=== PATIENT | male | born 1940 | race Caucasian/White ===

== ENCOUNTER 2017-12-14 12:52 | Day surgery (SDC) | payer MEDICARE, BC ==
[~2017-12-14] VITALS: Ht 188 cm; Wt 186.4 kg
[~2017-12-14 12:52] MED LIST: ALLOPURINOL300 MG PO; ARTHROTEC 550 MG/TAB PO; CALTRATE-600 W600 MG PO; FISH OIL CONC1000 MG PO; GLUCOSAMINE PO; HCTZ 25MG TAB25 MG PO; LISINOPRIL20 MG PO; LYRICA150 MG PO; METAMUCIL1 PDR PO; MVI; OXYCODONE HCL10 MG PO; ULTRAM50 MG PO; XENICAL120 MG PO; ZOCOR 20MG20 MG PO
[2017-12-14] MEDS ORDERED: MULTIPLE VITAMI1 CAP PO (13:35)
[2017-12-14] MEDS ORDERED: PRAVACHOL 40MG40 MG PO (13:35)
[2017-12-14] MEDS ORDERED: COZAAR 50MG50 MG/TAB PO (13:36)
[2017-12-14] MEDS ORDERED: LEXAPRO 10MG10 MG PO (13:36)
[2017-12-14] MEDS ORDERED: B-121000 MCG PO (13:37)
[2017-12-14] MEDS ORDERED: FLOMAX 0.40.4 MG/CAP PO (13:38)
[2017-12-14] MEDS ORDERED: PROSCAR 5MG5 MG PO (13:38)
[2017-12-14] MEDS ORDERED: CIPRO 500MG TA500 MG PO (13:39)
[2017-12-14] MEDS ORDERED: GLUCOSAMINE 1000 PO (13:40)
[2017-12-14] MEDS ORDERED: VITAMIN C500 MG PO (13:41)
[2017-12-14] MEDS ORDERED: GLUCOPHAGE1000 MG PO (13:41)
[2017-12-14] MEDS ORDERED: OXYCONTIN 20MG20 MG PO (13:42)
[2017-12-14] MEDS ORDERED: ARTHROTEC 550 MG/TAB PO (13:42)
[2017-12-14] MEDS ORDERED: OXYCONTIN 10MG10 MG PO (13:43)
[2017-12-14] MEDS ORDERED: LYRICA 150MG C150 MG PO (13:44)
== END 2017-12-14 14:05 | disposition home or self-care (01) ==
LOC: SDCO 12:52
DX: N47.1 Phimosis (principal); N39.0 Urinary tract infection, site not specified; E66.01 Morbid (severe) obesity due to excess calories; M19.90 Unspecified osteoarthritis, unspecified site; E11.9 Type 2 diabetes mellitus without complications; I10 Essential (primary) hypertension; G47.33 Obstructive sleep apnea (adult) (pediatric); Z88.0 Allergy status to penicillin; Z88.8 Allergy status to other drugs, medicaments and biological substances; Z88.5 Allergy status to narcotic agent; Z82.49 Family history of ischemic heart disease and other diseases of the circulatory system

== ENCOUNTER 2022-03-02 20:32 | Inpatient (IN) | payer MEDICARE, BC ==
[~2022-03-02] VITALS: Ht 175.3 cm; Wt 180.5 kg
[~2022-03-02 20:32] MED LIST changes: +B-121000 MCG PO; +CIPRO 500MG TA500 MG PO; +COZAAR 50MG50 MG/TAB PO; +FLOMAX 0.40.4 MG/CAP PO; +GLUCOPHAGE1000 MG PO; +GLUCOSAMINE 1000 PO; +LEXAPRO 10MG10 MG PO; +LYRICA 150MG C150 MG PO; +MULTIPLE VITAMI1 CAP PO; +OXYCONTIN 10MG10 MG PO; +OXYCONTIN 20MG20 MG PO; +PRAVACHOL 40MG40 MG PO; +PROSCAR 5MG5 MG PO; +VITAMIN C500 MG PO
[2022-03-02 22:14] LABS: BASO # 0.1 K/mm3 (0.0-0.2); BASO % 0.5 % (0.0-2.0); EOS # 0.1 K/mm3 (0.0-0.7); EOS % 0.5 % (0.0-4.0); GRAN # 19.2 K/mm3 (1.4-6.5); HEMATOCRIT 43.8 % (42.0-52.0); HEMOGLOBIN 13.8 g/dl (13.5-18.0); LYMPH # 0.8 K/mm3 (1.2-3.4); LYMPH % 3.7 % (20.0-51.0); MEAN CELL VOLUME 88 fl (80.0-100.0); MEAN CORPUSCULAR HEMOGLOBIN 28 pg (27-31); MEAN CORPUSCULAR HGB CONC 32 g/dl (33.0-37.0); MONO # 1.2 K/mm3 (0.1-0.6); MONO % 5.7 % (1.7-9.3); PLATELET COUNT 235 K/mm3 (130-400); RED BLOOD COUNT 4.98 M/mm3 (4.20-5.60); REDCELL DISTRIBUTION WIDTH-CV 15.4 % (11.5-14.5)
[2022-03-02 22:19] LABS: INR 1.3 (0.8-3.0); PROTHROMBIN TIME 14.5 SECONDS (9.7-12.8)
[2022-03-02 22:27] LABS: ARTERIAL BLD GAS TCO2 CT 26.4; ARTERIAL BLOOD GAS HCO3 25.2 meq/L (22-26); ARTERIAL BLOOD GAS PCO2 38.7 mmHg (35-45); ARTERIAL BLOOD GAS PO2 79.3 mmHg (80-100); ARTERIAL BLOOD GAS pH 7.43 (7.35-7.45)
[2022-03-02 22:31] LABS: BILIRUBIN,TOTAL 0.9 mg/dL (0.2-1.2); CALCIUM 9.1 mg/dL (8.4-10.2); CREATININE, serum 1.59 mg/dL (0.72-1.25); POTASSIUM 3.9 mmol/L (3.5-4.5); TOTAL PROTEIN 7.5 gm/dL (6.2-8.1)
[2022-03-02 22:37] LABS: TROPONIN-I 0.021 ng/mL (0.00-0.033)
[2022-03-03 00:14] LABS: COLLECTION METHOD CATHETER
[2022-03-03 00:29] LABS: PH 8 (5-8); URINE APPEARANCE Turbid (CLEAR/HAZY); URINE BACTERIA Rare /hpf (NONE SEEN); URINE BILIRUBIN Negative (NEGATIVE); URINE BLOOD 2+ (NEGATIVE); URINE COLOR Yellow (YELLOW); URINE GLUCOSE 3+ (NEGATIVE); URINE KETONE Negative (NEGATIVE); URINE LEUKOCYTE ESTERASE 3+ (NEGATIVE); URINE NITRATE Positive (NEGATIVE); URINE PROTEIN(semi-quant) 1+ (NEGATIVE); URINE RBC 20-50 /hpf (0-2); URINE UROBILINOGEN Negative (NEGATIVE)
[2022-03-03] MEDS ORDERED: GLUCOPHAGE XR500 M1 PO (02:06)
[2022-03-03] MEDS ORDERED: ZYLOPRIM 300MG300 MG PO (02:07)
[2022-03-03] MEDS ORDERED: JARDIANCE25 PO (02:10)
[2022-03-03] MEDS ORDERED: MULTI VITAMINS1 TAB PO (02:11)
[2022-03-03] MEDS ORDERED: GEMTESA75 MG PO (02:11)
[2022-03-03] MEDS ORDERED: MONODOX100 PO (02:11)
[2022-03-03] MEDS ORDERED: VITAMIN D 400400 IU PO (02:11)
[2022-03-03] MEDS ORDERED: LASIX 20MG TABL20 MG PO (02:12)
[2022-03-03] MEDS ORDERED: NUVIGIL150 MG PO (02:36)
--- NOTE | 2022-03-03 05:26 | NUR ---
81 yo male admitted for further care and management of acute respiratory failure with severe sepsis likely secondary to lung vs. urine vs. skin/soft tissue source. ht 187.96 cm wt 181.8 kg (adj wt 122 kg) SCr 1.59 with estimated CrCl ~45 ml/min half life 28.5 hours Plan: Patient may not follow population based kinetics secondary to renal dysfunction and body habitus (BMI 51.4 kg/m2). Will load with an initial split loading dose of vancomycin 2000 mg followed by vancomycin 1250 mg for a total loading dose of 3250 mg (17.9 mg/kg); followed by a maintenance regimen of vancomycin 1500 mg q24h to target a goal trough of 15-20 mcg/ml. Will follow patient's renal function, micro data, and vancomycin levels as indicated to assess for any necessary changes to regimen. Thank you for this dosing consult.
[2022-03-03 14:14] LABS: HEMATOCRIT 38.7 % (42.0-52.0); HEMOGLOBIN 12.6 g/dl (13.5-18.0); MEAN CELL VOLUME 86 fl (80.0-100.0); MEAN CORPUSCULAR HEMOGLOBIN 28 pg (27-31); MEAN CORPUSCULAR HGB CONC 33 g/dl (33.0-37.0); PLATELET COUNT 206 K/mm3 (130-400); RED BLOOD COUNT 4.52 M/mm3 (4.20-5.60); REDCELL DISTRIBUTION WIDTH-CV 15.4 % (11.5-14.5)
[2022-03-03 14:28] LABS: CALCIUM 8.2 mg/dL (8.4-10.2); CREATININE, serum 1.51 mg/dL (0.72-1.25); MAGNESIUM 1.4 mg/dL (1.6-2.6); POTASSIUM 3.5 mmol/L (3.5-4.5)
--- NOTE | 2022-03-03 14:28 | NUR ---
Leguillon Debeader met with patient and patient's , Laury (ph#[phone]) to discuss discharge planning. Patient lives outside of [place] and sees Dr. Jaramillo for primary care. Patient obtains medications from [facility] and Laury remarked that both her medications and patients can get expensive, but they are able to manage at this time. 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 Patient is unable to walk and uses a motorized wheelchair for ambulation. Laury advised that they have several grab bars all around the home and patient is normally able to transfer himself from his chair to the toilet and back, mostly independently. Laury advised she helps patient with bathing and dressing. JACQUELYN discussed the possibility of post acute rehab and Laury advised patient will likely not agree to this as home is very important to him (patient sleeping at this point of the intake). Laury denied any current or past Home Health services. PT/OT ordered. JACQUELYN located Advance Directives in EMR which designate patient's Laury as DPOA-HC and his son and daughter in law, Jose Enrique and Chantell as alternates. Discharge Plan: Patient prefers home, PT/OT recs pending
[2022-03-03 14:36] LABS: ANISOCYTOSIS 1+; BAND 19 % (0-10); EOSINOPHIL 2 % (0-4); LYMPHOCYTE 16 % (20.0-51.0); METAMYELOCYTE 1 % (0-0); NEUTROPHILS 52 % (42.0-75.2); PLATELET ESTIMATE NORMAL (NORMAL)
[2022-03-03 16:27] VITALS: BP 154/88; PULSE 72; TEMP 98.1
[2022-03-03 19:38] VITALS: BP 149/78; PULSE 70; TEMP 97.4
[2022-03-03 19:52] VITALS: BP 149/78; PULSE 70; TEMP 97.4
--- NOTE | 2022-03-03 20:11 | NUR ---
PATIENT ARRIVED FROM ER WITH NO COMPLAINTS OF PAIN, STATES NO BM IN 5X DAYS., HEPARIN DRIP CONFIRMED TO BE RUNNING AT 2300UI/HR. PATIENT SETTLED IN BED ORIENTED TO ROOM, CHANGED CHUX PAD AND PROVIDED WATER AND MEAL ORDER OPTIONS. PATIENT ASSESSMENT COMPLETED. MED REC COMPLETED WITH AT END OF SHIFT. NO SIGNIFICANT EVENTS DURING SHIFT. HEPARIN DRIP ADJUSTED TO 2550UI/HR PER PROTOCOL, CONFIRMED WITH BEDSIDE SHIFT REPORT.
[2022-03-04] VITALS (7 sets, daily range): BP systolic 147–171; BP diastolic 73–89; PULSE 66–82; TEMP 97.6–100.2
--- NOTE | 2022-03-04 00:14 | NUR ---
Patient assessed around 0. Alert and oriented. Denies pain and discomfort, except being constipated. Given scheduled stool softeners per orders. Continues on IV fluids, ABX, and Heparin drip per orders. In bed with call light within reach.
--- NOTE | 2022-03-04 06:06 | NUR ---
Continues on IV ABX, fluids, and Heparin drip per orders. Incontinent cares provided throughout the night. Voices no questions, needs, or concerns at this time. In bed with call light within reach.
[2022-03-04 06:24] LABS: HEMATOCRIT 39.7 % (42.0-52.0); HEMOGLOBIN 13.1 g/dl (13.5-18.0); MEAN CELL VOLUME 84 fl (80.0-100.0); MEAN CORPUSCULAR HEMOGLOBIN 28 pg (27-31); MEAN CORPUSCULAR HGB CONC 33 g/dl (33.0-37.0); MEAN PLATELET VOLUME 10.1 fl (7.4-10.4); PLATELET COUNT 207 K/mm3 (130-400); RED BLOOD COUNT 4.71 M/mm3 (4.20-5.60); REDCELL DISTRIBUTION WIDTH-CV 15.3 % (11.5-14.5)
[2022-03-04 06:47] LABS: ALBUMIN 2.6 gm/dL (3.4-4.8); BILIRUBIN,TOTAL 0.8 mg/dL (0.2-1.2); CALCIUM 8.3 mg/dL (8.4-10.2); CREATININE, serum 1.48 mg/dL (0.72-1.25); POTASSIUM 3.7 mmol/L (3.5-4.5); TOTAL PROTEIN 7.1 gm/dL (6.2-8.1)
[2022-03-04 07:20] LABS: BAND 8 % (0-10); BASOPHIL 1 % (0-2); EOSINOPHIL 1 % (0-4); LYMPHOCYTE 13 % (20.0-51.0); NEUTROPHILS 70 % (42.0-75.2)
[2022-03-04 07:21] LABS: PLATELET ESTIMATE NORMAL (NORMAL)
[2022-03-04 08:30] LABS: CALCIUM 8.4 mg/dL (8.4-10.2); CREATININE, serum 1.49 mg/dL (0.72-1.25); POTASSIUM 3.8 mmol/L (3.5-4.5)
--- NOTE | 2022-03-04 10:20 | NUR ---
PATIENT ON CONT. PULSE OX MONITORING. 3L OXY MASK. CONSTANT URINATION, DETERIATION OF SKIN ON THE SCROTUM. SOME BLEEDING FROM OPEN SKIN. WOUND ON SCROTUM HAS NOT GROWN. UNABLE TO PLACE WATERMAN PER ORDER, WILL REQUET UROLOGY CONSULT. PATIENT MENTIONED TO THIS NURSE ABOUT NOT WANTING TO GO HOME IN HIS CONDITION, OR BE AN IVALID UNTIL HE . "WANTING TO BE DONE WITH IT ALL". WILL DISCUSS WITH PROVIER.
--- NOTE | 2022-03-04 12:24 | NUR ---
Zuleika: Tenriism Situation: Tool Programmer went to room on rounds Background: PT was resting and content Assessment: PT didn't have any needs and appreciated the visit Recommendation: Tool Programmer will follow up as needed
--- NOTE | 2022-03-04 13:42 | NUR ---
Met with patient and his at bedside. Dr. Quinones also stepped in during out conversation. Discussed difference between SNF and home health and that we could talk about hospice if that is the direction patient wants to go. Discussed that the big question is how aggressive he wants to be with his care and how much work he is willing/able to put in to rehab. Was also upfront with the patient that we have limited rehab options d/t his size and current mobility level. Patient ended our conversation but will check back later.
--- NOTE | 2022-03-04 15:43 | NUR ---
PATIENT ON BED REST, INSTRUCTED TO NOT SIT EDGE OF BED WITH , FOR IF HE WERE TO FALL, HE COULD HURT HIMSELF, AND/OR STAFF TRYING TO GET HIM BACK UP INTO BED. PATIENT IS CONSTANTLY EXCRETING URINE, BED CHANGES EVERY 30-60MINS. FAILED WATERMAN ATTEMPTS BY THIS NURSE, GREEN CHAINER AND UROLOGY PA. UROLOGY TO DISCUSSE CYSTO PLACEMENT. HEPARIN DRIP AT 3050UI/HR. AWAITING HEPXA RESULTS FOR TITRATION. PALIATIVE CONSULT INITIATED. PATIENT CONSIDERING HOSPICE.
--- NOTE | 2022-03-04 15:58 | NUR ---
A palliative care consult was ordered. The patient and his and discussing goals of care and how aggressive they want to be.
--- NOTE | 2022-03-04 20:30 | NUR ---
Initial shift assessment done- at bedside with patient,, pt is alert/oriented, had a couple family members at bedside wanting to know his condition- given information per pts requests- IV fluids of NS at 150cc/hr per PICC YO, o2 at 3L/oxymask,sats 91%,, incontinent of urine- cleaned up/pulled up in bed--- has the crystal size open area on left side of scrotum- lower legs discolored/red, skin dry/scaly
[2022-03-05 03:33] VITALS: BP 155/77; PULSE 68; TEMP 98.1
--- NOTE | 2022-03-05 05:49 | NUR ---
O2 SATS 95% on 3L/oxymask,, did sleep for a few hours, incontinent of urine and cleaned up throughout the night every couple hours,, did have a temp of 100.2 last night,, some Tylenol given - afebrile this morning.
[2022-03-05 07:44] VITALS: BP 157/69; PULSE 67; TEMP 98.1
--- NOTE | 2022-03-05 09:00 | NUR ---
Patient is resting in bed with at the bedside. Receiving NS 150ml/hr. Changed per orders to 75ml/hr. Telemetry in place, NSR. Receiving 3L O2. Assessment completed, no other needs at this time. Call light within reach.
[2022-03-05 11:30] VITALS: BP 141/88; PULSE 78; TEMP 98.3
[2022-03-05 11:32] LABS: HEMATOCRIT 37.9 % (42.0-52.0); HEMOGLOBIN 11.8 g/dl (13.5-18.0); MEAN CORPUSCULAR HEMOGLOBIN 28 pg (27-31); MEAN CORPUSCULAR HGB CONC 31 g/dl (33.0-37.0); PLATELET COUNT 195 K/mm3 (130-400); RED BLOOD COUNT 4.26 M/mm3 (4.20-5.60); REDCELL DISTRIBUTION WIDTH-CV 15.6 % (11.5-14.5)
[2022-03-05 11:41] LABS: MEAN CELL VOLUME 89 fl (80.0-100.0)
[2022-03-05 11:53] LABS: ALBUMIN 2.2 gm/dL (3.4-4.8); BILIRUBIN,TOTAL 0.6 mg/dL (0.2-1.2); CALCIUM 7.3 mg/dL (8.4-10.2); CREATININE, serum 1.02 mg/dL (0.72-1.25); POTASSIUM 3.2 mmol/L (3.5-4.5); TOTAL PROTEIN 6.1 gm/dL (6.2-8.1)
[2022-03-05 12:12] LABS: BAND 1 % (0-10); EOSINOPHIL 1 % (0-4); LYMPHOCYTE 13 % (20.0-51.0); NEUTROPHILS 76 % (42.0-75.2)
[2022-03-05 12:13] LABS: ANISOCYTOSIS 1+; HYPOCHROMIA 2+; PLATELET ESTIMATE NORMAL (NORMAL)
[2022-03-05 15:38] VITALS: BP 159/69; PULSE 63; TEMP 98.6
--- NOTE | 2022-03-05 18:08 | NUR ---
Patient had a couple of small dry bowel movements. Continues getting fluids at 75 ml/hr. No insulin was needed along the day. He is using 4.5L O2 Oxymasc. Report will be given to night RN.
[2022-03-05 19:14] VITALS: BP 149/73; PULSE 64; TEMP 99.2
--- NOTE | 2022-03-05 20:30 | NUR ---
Initial shift assessment done- in room with him for the night-- patient is alert/oriented/ incontinent of urine/cleaned up/repositioned-in bariatric bed.has o2 at 4L/oxymask,sats 93%. pt states he just feels weak,very low energy. Iv fluids of NS at 75cc/hr.
[2022-03-06] VITALS (7 sets, daily range): BP systolic 150–163; BP diastolic 68–88; PULSE 64–76; TEMP 97.4–99.3
--- NOTE | 2022-03-06 06:34 | NUR ---
Quiet night - Was incontinent of urine numerous times- cleaned up and repositioned, o2 at 4L/nc, sats 93-94%,, highest temp during the night 99.3,, continues with IV fluids of NS at 75cc/hr
[2022-03-06 07:02] LABS: BASO # 0.1 K/mm3 (0.0-0.2); BASO % 0.5 % (0.0-2.0); EOS # 0.3 K/mm3 (0.0-0.7); EOS % 2.4 % (0.0-4.0); GRAN # 8.1 K/mm3 (1.4-6.5); HEMOGLOBIN 12.6 g/dl (13.5-18.0); LYMPH # 2.2 K/mm3 (1.2-3.4); LYMPH % 18.3 % (20.0-51.0); MEAN CELL VOLUME 87 fl (80.0-100.0); MEAN CORPUSCULAR HEMOGLOBIN 28 pg (27-31); MEAN CORPUSCULAR HGB CONC 32 g/dl (33.0-37.0); MEAN PLATELET VOLUME 10.6 fl (7.4-10.4); MONO # 1.1 K/mm3 (0.1-0.6); PLATELET COUNT 219 K/mm3 (130-400); RED BLOOD COUNT 4.59 M/mm3 (4.20-5.60); REDCELL DISTRIBUTION WIDTH-CV 15.5 % (11.5-14.5)
[2022-03-06 07:24] LABS: ALBUMIN 2.5 gm/dL (3.4-4.8); BILIRUBIN,TOTAL 0.7 mg/dL (0.2-1.2); CALCIUM 8.2 mg/dL (8.4-10.2); CREATININE, serum 1.25 mg/dL (0.72-1.25); POTASSIUM 3.6 mmol/L (3.5-4.5); TOTAL PROTEIN 6.8 gm/dL (6.2-8.1)
--- NOTE | 2022-03-06 08:30 | NUR ---
Patient is resting in bed, alert and oriented x 4, VSS but HTN 150-160'S. Complained of SOB at night. Telemetry in place, NSR. 4L o2 Oxymasc. He has been having very small ammounts of BM. Continue receiving NS 75 ML/HR. Assessment completed, meds provided. No other needs at this time. Call light within reach.
--- NOTE | 2022-03-06 18:17 | NUR ---
Patient has had some small and loose BM. His glucose levels do not require insulin according to the scale. Continues with 4.5 L oxymasc. Report will be given to night RN.
--- NOTE | 2022-03-06 20:30 | NUR ---
Initial shift assessment done- o2 at 4L/oxymask, sats 98% , patient had requested the continuos sat monitor- now wants it off-- so removed at this time, PICC to YO, denies pain, stare ate a good supper tonight- in room- stays all night.
[2022-03-07] VITALS (7 sets, daily range): BP systolic 155–186; BP diastolic 56–93; PULSE 65–77; TEMP 97.7–99.8
--- NOTE | 2022-03-07 04:54 | NUR ---
Quiet night- no changes- did get a few hours of sleep- VSS, o2 at 4Loxymask, sats 94%- continues to be incontinent of urine all night--was incontinent of a small soft stool x1.
--- NOTE | 2022-03-07 12:15 | NUR ---
PATIENT RESTING IN BED. ALERT AND ORIENTED. PATIENT MORE COMPLIANT WITH CARE, MORE INVOLVED WITH ASSISTING IN CARE TODAY. PATIENT PULLED HIMSELF UP IN THE BED TODAY. PATIENT HAS HAD TWO MEDIUM TO LARGE BOWEL MOVEMENTS DURING THE COURSE OF MORNING ASSESSMENT AND MED ADMINISTRATION. BROWN, SEMI-SOFT AND FORMED. NO COMPLAINTS OF PAIN WITH BOWEL MOVEMENT. PATIENT STATES HE HAD A VERY LARGE ROUND HARD BM OVER NIGHT THAT HIS HELPED CLEAN UP, HE DID NOT REPORT TO COSMETIC DENTIST STAFF. PATIENT TOOK ALL MEDS THIS MORNING ONE AT A TIME WITH ORANGE JUICE. REQUESTING DIET TO BE CHANGED TO MINCED AND MOIST MEAT, STATES HE CANNOT CHEW THE HOSPITAL MEAT. PATIENT WEIGHT TODAY IS 176.4KG. NO SIGNIFICANT COMPLAINTS OF PAIN. STILL ON 4L OF O2 VIA OXYMASK. WANTS TO SPEAK WITH SW ABOUT DPOA PAPERWORK. NO CONCERNS AT THIS TIME.
--- NOTE | 2022-03-07 18:26 | NUR ---
PATIENT RESTING IN BED. COMPLAINTS OF BACK PAIN. PATIENT INQUIRED ABOUT HIS HOME MED OXYCODONE. INSTRUCTED THAT NARCOTIC PAIN MEDS LIKELY CAUSE OF CONSTIPATION. PATIENT DID HAVE 3 MEDIUM-LARGE BOWEL MOVEMENTS TODAY. RECOMMEND INQUIRING ABOUT CONTINUING RELISTOR INJECTIONS. PATIENT WANTED TO TRY EXTERNAL CATH, THIS NURSE ATTEPTED. UNFORTUNATELY DUE TO NATURE OF PATIENTS FORESKIN AND MOISTURE, NOT ABLE TO APPLY CATH. AT END OF SHIFT PATIENT DID GET FULL BED CHANGE, NEW CHUX PADS AND SHEET. USING ONE CHUX FOLDED TO SUPPORT HERNIA AND PROTECT ABD SKIN FROM EXTRA MOISTURE. FLOOR CURRENTLY OUT OF INTERDRY SHEETS. PATIENT HYPERTENSIVE MEDS RESTARTED THIS EVENING. ZESTRIL NOT VERIFIED BY PHARMACY BY SHIFT CHANGE. WILL PASS ALONG IN SHIFT REPORT. BLOOD PRESSURE HAS BEEN ELEVATED THIS EVENING, REPORTED 182/89 AND 172/[address] BEVERLY (HE RESTARTED BP MEDS AND LASIX). NO OTHER SIGNIFICANT EVENTS TODAY OR CAUSE FOR CONCERN. PATIENT SEEMS TO BE VERY INTERESTED IN GETTING HEALTHY AND GETTING MORE ACTIVE AND ACHIEVING NEEDS TO GO HOME.
[2022-03-08] MEDS ORDERED: NORVASC 10MG10 MG PO (00:51)
[2022-03-08 03:35] VITALS: BP 178/84; PULSE 89; TEMP 97.8
--- NOTE | 2022-03-08 07:02 | NUR ---
pt on O2 per mask @4.5L, prn hydralazine started tonight for elevated SBP, x2 doses given, last @0030, BP this am down to 162/74. pt checked and turned q2, several soft formed bms tonight, recommended to hold off on some of the scheduled bowel movers today. pt c/o discomfort in groin/pannus/scrotum areas d/t excoriation, attempted to place inner dry but with incontinence of urine, cloth was saturated, covered entire area with barrier cream and wound gel. PICC line in YO patent/secure, no labs ordered for this am, will check with provider for order. tylenol given x2 for reported back pain. @ bedside.
[2022-03-08 07:07] VITALS: BP 166/86; PULSE 88; TEMP 97.4
[2022-03-08 08:16] LABS: ALBUMIN 2.7 gm/dL (3.4-4.8); BILIRUBIN,TOTAL 0.7 mg/dL (0.2-1.2); CALCIUM 9.1 mg/dL (8.4-10.2); CREATININE, serum 0.89 mg/dL (0.72-1.25); POTASSIUM 3.5 mmol/L (3.5-4.5); TOTAL PROTEIN 7.2 gm/dL (6.2-8.1)
--- NOTE | 2022-03-08 08:40 | NUR ---
PATIENT TURNED IN BED RESTING ON SIDE RAIL, C/O INCREASING BACK PAIN. LOWER RIGH BACK PAIN. PATIENT STATES ITS BASELINE LOCATION FOR PAIN. ON TYLENOL PER NOV, PRN. MEDS TAKEN WHOLE WITH SIOPS OF FLUIDS ONE AT A TIME, ASSISTS WITH MEDS. PATIENT ON 3L NC, SOME SHORTNESS OF BREATH, NO CYANOSIS, OR AMS. PICC DIFFICULT TO FLUSH OR DRAW. WILL CONSULT AIVS TO ADDRESS. WILL CONTINUE TO MONITOR.
--- NOTE | 2022-03-08 11:27 | NUR ---
The patient's cousin arrived to the hospital. JACQUELYN met with the patient, his (Laury), and cousin (Haley) to review discharge plan. The patient and his family report that plan is to return home upon discharge. Haley states that she is talking to a DME company, [employer], in [place], [place] about a bariatric hospital bed. She states that they can deliver the hospital bed in 24-48 hours, but she would like to call them back to inquire if this is a done deal and if they can also supply a trapeze. JACQUELYN informed her that this SW can also contact the DME company to assist. Haley asked for JACQUELYN to hold off and that she would contact this SW back, once she contacted them. JACQUELYN inquired if the patient would like to pursue with SNF. The patient and his declined SNF. Haley asked if any close facilities would accept him. JACQUELYN informed her how we would have to send referrals to inquire if a facility could accomodate the patient. The patient and his family verbalized understanding. The patient and his would like to pursue with going home. JACQUELYN provided them with Medicare.gov's list of home health agencies that serve [place]. Haley would like to look over the list and contact and few agencies, before giving SW their preference. The patient also verified that he has an oxygen concentrator at home, but not portable and he would need this. He received his oxygen concentrator from [employer]. Will await home health preference and follow up about hospital bed from [employer].
[2022-03-08 11:29] LABS: HEMATOCRIT 45.4 % (42.0-52.0); MEAN CELL VOLUME 86 fl (80.0-100.0); MEAN CORPUSCULAR HGB CONC 32 g/dl (33.0-37.0); PLATELET COUNT 265 K/mm3 (130-400); RED BLOOD COUNT 5.31 M/mm3 (4.20-5.60); REDCELL DISTRIBUTION WIDTH-CV 15.2 % (11.5-14.5)
[2022-03-08 11:31] LABS: HEMOGLOBIN 14.6 g/dl (13.5-18.0); MEAN CORPUSCULAR HEMOGLOBIN 27 pg (27-31)
[2022-03-08 11:56] LABS: EOSINOPHIL 3 % (0-4); LYMPHOCYTE 23 % (20.0-51.0); METAMYELOCYTE 2 % (0-0); NEUTROPHILS 67 % (42.0-75.2)
[2022-03-08 11:57] LABS: PLATELET ESTIMATE NORMAL (NORMAL)
[2022-03-08 12:00] VITALS: BP 161/78; PULSE 85
--- NOTE | 2022-03-08 12:49 | NUR ---
The patient's cousin, Haley, contacted JACQUELYN. Haley reports that she has contacted [facility] and she would like to use them. She reports that [facility] can deliver the hospital bed in 24 hours. She asks that the doctor send a script to the DME company. She states that they will have to private pay for the hospital bed and they are okay with this. They plan on contacting the DME company to pay for it. She also requested a list of private duty caregivers. JACQUELYN provided the the patient's with the list of private duty caregivers. JACQUELYN obtained a script for the hospital bed and faxed it to [facility]. [facility] left SW a voicemail stating that they do not need the script. They do not bill insurance. JACQUELYN contacted and faxed a referral to Duane at [facility]. *Discharge plan: home with and home health*
--- NOTE | 2022-03-08 13:09 | NUR ---
Duane, at [facility], reports that they are short staffed this week; but she will check with her santosevisorPedrito.
--- NOTE | 2022-03-08 14:50 | NUR ---
DISCUSSED WITH PATIENT FAMILY MEMEBER PATIENT NEEDS, IE. BARIATRIC HOSPITAL BED THAT HAS BEEN ORDER AND WILL BE DELIVERED TO HOUSE ON 03/09. PATIENT HAS OXYGEN SUPPLY DELIVERY ALREADY IN PLACE. HOME HEALTH SERVICES ESTABLISHED THROUGH SW. FAMILY MEMEMBER REQUESTING SOMETHING (?) TO BE SET UP FOR HIS MEDICATIONS "HIS TROY IS TOO OVERWHELMED AND WILL NOT BE ABLE TO STOP AT THE PHARMACY FOR HIS MEDICATIONS TOO." PATIENT ADDRESSED BEING DISCHARGED EARLY POSSIBLE TOMORROW HE NEEDED TO BE "HOME TO OPEN THE DOOR FOR THE BARIATRIC BED DELIVERY". THIS NURSE SPOKE WITH PATRICK PENA REGARDING PATIENTS CURRENT STATUS. PATIENT SKIN UNDER HERNIA, PANIS AND GROIN AREA IS EXCORIATED, MASERATED AND INCREASINGLY BREAKING DOWN. PATIENT WBC INCREASED, BREATHING DIFFICULTY INCREASING. PATIENT C/O LOWER RIGHT FLANK PAIN. THIS NURSE IS CONCERNED DISCHARGE TO HOME WITH HOME HEALTH IS NOT A SAFE DISCHARGE AT THIS TIME.
[2022-03-08 16:00] VITALS: BP 173/96; PULSE 74
--- NOTE | 2022-03-08 17:48 | NUR ---
Vancomycin Initial Dosing Pharmacy Note Ordering provider: Nate Soto MD Indication/duration: Wound infection, 7 days LABS: SCr 0.89, CrCl~89, GFR 85 Recommendation: Will give Vancomycin 2 gm IV x1 loading dose, then Vancomycin 1.25 gm IV q12h. Pharmacy will continue to closely monitor. Loading dose: 2 grams Maintenance dose: 1.25 grams every 12 hours Trough goal: 10-15 ug/mL
--- NOTE | 2022-03-08 18:27 | NUR ---
PATIENT WORKED WITH PT, SAT ON EDGE OF BED TODAY. PLAN TO STILL DC HOME WITH HOME HEALTH TOMORROW. UROLOGY DECLINED CONSULT, PATIENT NOT A CANIDATE FOR SURGICAL INTERVENTIONS. NYSTATIN POWDER BEING USED ON GROIN TO HELP WITH FUNGAL INFECTION. IV ANTIBIOTICS CHANGED. IV VANC HUNG TONIGHT AT SHIFT CHANGE. COMPLAINTS STILL OF BACK PAIN. BLOOD PRESSURE TRENDING HIGH. PRN HYDRALAZINE ORDERED. PATIENT FREQ INCONTINET WITH SKIN BREAKDOWN. CONCERNED FOR PATIENT AND CARE AT HOME.
[2022-03-08 19:26] VITALS: BP 163/92; PULSE 99; TEMP 98
--- NOTE | 2022-03-08 20:30 | NUR ---
Initial shift assessment done- would like Tylenol for overall soreness/also helps him sleep,, o2 at 3L/nc, with sats 3L/nc, YO PICC, Tele on, Skin to groin/all scrotum/under all folds very dark red/fungal powder applied. in room, incontinent of urine throughout the shift-cleaned up often
[2022-03-09 01:08] VITALS: BP 165/93; PULSE 101; TEMP 98.4
[2022-03-09 04:05] VITALS: BP 157/85; PULSE 98; TEMP 98.8
--- NOTE | 2022-03-09 05:48 | NUR ---
Did not sleep much last night- numerous requests throughout night-- incontinent of large amounts of urine- cleaned uo- repositioned numerous times, Tylenol given x2 for "cant get comfortable" 02 at 3L/nc with sats 93-94%.
[2022-03-09 07:00] VITALS: BP 168/93; PULSE 106; TEMP 98
--- NOTE | 2022-03-09 10:26 | NUR ---
trim line worker met with patient to present MCR.IM form. Education provided and both the patient and his verbalize that their agreement with today's dc plan. Signed original placed in the patients chart and copy provided back to the patient. SW confirmed with the patient and his that they are wanting to go home with HH services. Inquired if they are going to hire private duty caregivers and his states that they haven't decided, but are still discussing it. Both the patient and his verbalize they they strongly feel confident with going home managing themselves as they have been doing. Patient's DME will be delivered this afternoon and the patient states someone will be at the home to let the company in. Discharge plan: Home with [facility] HH and family assist
[2022-03-09 10:48] LABS: HEMATOCRIT 46.1 % (42.0-52.0); HEMOGLOBIN 14.6 g/dl (13.5-18.0); MEAN CELL VOLUME 87 fl (80.0-100.0); MEAN CORPUSCULAR HEMOGLOBIN 28 pg (27-31); MEAN CORPUSCULAR HGB CONC 32 g/dl (33.0-37.0); MEAN PLATELET VOLUME 10.1 fl (7.4-10.4); PLATELET COUNT 289 K/mm3 (130-400); RED BLOOD COUNT 5.31 M/mm3 (4.20-5.60); REDCELL DISTRIBUTION WIDTH-CV 15.4 % (11.5-14.5)
--- NOTE | 2022-03-09 10:59 | NUR ---
JACQUEYLN called and spoke with Duane at [facility] who states that they are able to accept this patient. Clinical updates and discharge orders faxed to Duane. JACQUELYN notified by RT that the patient will need to increase from 2LPM of NC o2 to 3LPM. Phone call made to [facility] who supplies his oxygen to inform of the increase and patients clinical documentation faxed to Mister Spex.
[2022-03-09 11:00] VITALS: BP 167/94; PULSE 105
[2022-03-09 11:07] LABS: CALCIUM 9.3 mg/dL (8.4-10.2); CREATININE, serum 0.91 mg/dL (0.72-1.25); POTASSIUM 3.4 mmol/L (3.5-4.5)
[2022-03-09 11:32] LABS: HYPOCHROMIA 2+; LYMPHOCYTE 10 % (20.0-51.0); NEUTROPHILS 81 % (42.0-75.2)
[2022-03-09 11:33] LABS: ANISOCYTOSIS 1+; HYPERSEGMENTED POLYS PRESENT; PLATELET ESTIMATE NORMAL (NORMAL)
[2022-03-09] MEDS ORDERED: CEFTIN500 MG PO (12:07)
[2022-03-09] MEDS ORDERED: LOTRIMIN AF133 GM TOP (12:13)
--- NOTE | 2022-03-09 16:00 | NUR ---
PT DISCHARGED @ THIS TIME TO HOME WITH , LEAVES VIA HIS OWN MOTORIZED WC. PT HAS TAKEN A HOSPITAL OXYGEN TANK HOME THAT THEY STATE THEY WILL RETURN. RIGHT ARM PICC WAS REMOVED BY [facility] NURSE SAM. PT HAS BEEN REPOSITIONED @ LEAST Q 2HRS, IS INCONTINENT OF URINE FREQUENTLY. PT HAS A LARGE UMBILICAL HERNIA THAT IS REDDENED. SKIN AROUND PT'S GROIN, BUTTOCKS ET SKIN FOLDS ARE EXCORIATED ET RED. INCONTINENT CARE PROVIDED ET ANTIFUNGAL POWDER HAS BEEN APPLIED. PT IS ABLE TO AID IN REPOSITIONING HIMSELF BY USING GRAB BAR ET BEDRAILS.
--- NOTE | 2022-03-09 16:01 | NUR ---
Patient needing oxygen to get home with but states he didn't bring a tank withhim due to it only being used at night prior to admission. Established oxygen provider is [facility]. Contact made with [facility] who states that they have to have their physician specific order signed by our physician before they can bring tanks out. Order signed and faxed to [facility]. Patient dressed and ready to go. Collaborated with floor hand and agreement made for the patient to be sent home with one of our tanks and ELTON Moser Surg. Billposting Supervisor to pick it up in the morning on her way in to work. Patient's Laury instructed to leave the tank on their front porch and Kathy will pick it up.
== END 2022-03-09 16:00 | disposition home health service (06) | DRG 871 ==
LOC: COL.ER 20:32 → MEDICAL 03-03 01:00
PROVIDERS: Family Medicine; Internal Medicine; Nurse Practitioner Family; Physician Assistant; ADMIT Internal Medicine
PROC: 02HV33Z Insertion of Infusion Device into Superior Vena Cava, Percutaneous Approach (ICD-10-PCS; principal; 2022-03-03)
DX: A41.9 Sepsis, unspecified organism (principal); G92.8 Other toxic encephalopathy; J96.01 Acute respiratory failure with hypoxia; E87.2 Acidosis; N17.9 Acute kidney failure, unspecified; E66.2 Morbid (severe) obesity with alveolar hypoventilation; Z66 Do not resuscitate; N39.0 Urinary tract infection, site not specified; B48.8 Other specified mycoses; Z68.43 Body mass index [BMI] 50.0-59.9, adult; R65.20 Severe sepsis without septic shock; R32 Unspecified urinary incontinence; R54 Age-related physical debility; M19.90 Unspecified osteoarthritis, unspecified site; E78.5 Hyperlipidemia, unspecified; G89.29 Other chronic pain; M54.9 Dorsalgia, unspecified; M54.2 Cervicalgia; K59.00 Constipation, unspecified; E11.65 Type 2 diabetes mellitus with hyperglycemia; E88.09 Other disorders of plasma-protein metabolism, not elsewhere classified; F40.240 Claustrophobia; N18.30 Chronic kidney disease, stage 3 unspecified; M40.209 Unspecified kyphosis, site unspecified; I12.9 Hypertensive chronic kidney disease with stage 1 through stage 4 chronic kidney disease, or unspecified chronic kidney disease; E11.22 Type 2 diabetes mellitus with diabetic chronic kidney disease; K40.90 Unilateral inguinal hernia, without obstruction or gangrene, not specified as recurrent; B96.4 Proteus (mirabilis) (morganii) as the cause of diseases classified elsewhere; N47.6 Balanoposthitis; N47.1 Phimosis; N50.89 Other specified disorders of the male genital organs; I35.0 Nonrheumatic aortic (valve) stenosis; N49.2 Inflammatory disorders of scrotum; Z79.84 Long term (current) use of oral hypoglycemic drugs; Z91.19 Patient's noncompliance with other medical treatment and regimen; Z88.6 Allergy status to analgesic agent; Z88.1 Allergy status to other antibiotic agents; Z88.8 Allergy status to other drugs, medicaments and biological substances; Z99.3 Dependence on wheelchair; Z87.891 Personal history of nicotine dependence
CPT/HCPCS: 99232-AI; 99233-AI; 99239; A4314; A9270; C1751; C1892; J0360; J0456; J0692; J0696; J1644; J1650; J1815; J1940; J2212; J3370; J7030; J7040; J7050

== ENCOUNTER 2023-08-26 16:53 | Inpatient (IN) | payer MEDICARE, BC ==
[~2023-08-26] VITALS: Ht 190.5 cm; Wt 190.0 kg
[~2023-08-26 16:53] MED LIST changes: +CEFTIN500 MG PO; +GEMTESA75 MG PO; +GLUCOPHAGE XR500 M1 PO; +JARDIANCE25 PO; +LASIX 20MG TABL20 MG PO; +LOTRIMIN AF133 GM TOP; +MONODOX100 PO; +MULTI VITAMINS1 TAB PO; +NORVASC 10MG10 MG PO; +NUVIGIL150 MG PO; +VITAMIN D 400400 IU PO; +ZYLOPRIM 300MG300 MG PO
[2023-08-26 17:58] LABS: COLLECTION METHOD CLEAN CATCH
[2023-08-26 18:22] LABS: HEMOGLOBIN 10.9 g/dl (13.5-18.0); MEAN CELL VOLUME 88 fl (80.0-100.0); MEAN CORPUSCULAR HEMOGLOBIN 28 pg (27-31); MEAN CORPUSCULAR HGB CONC 32 g/dl (33.0-37.0); PLATELET COUNT 305 K/mm3 (130-400); RED BLOOD COUNT 3.88 M/mm3 (4.20-5.60); REDCELL DISTRIBUTION WIDTH-CV 14.7 % (11.5-14.5)
[2023-08-26 18:35] LABS: HEMATOCRIT 34.2 % (42.0-52.0)
[2023-08-26 18:42] LABS: PH 6.5 (5.0-8.5); URINE APPEARANCE Cloudy (CLEAR/HAZY); URINE BLOOD 2+ (NEGATIVE); URINE COLOR Yellow (YELLOW); URINE GLUCOSE Negative (NEGATIVE); URINE KETONE Negative (NEGATIVE); URINE NITRATE Negative (NEGATIVE); URINE PROTEIN(semi-quant) 2+ (NEGATIVE); URINE UROBILINOGEN 0.2 E.U/dL (0.2-1.0)
[2023-08-26 18:42] LABS: ALANINE AMINOTRANSFERASE 17 U/L (0-55); ALBUMIN 2.5 gm/dL (3.4-4.8); ALKALINE PHOSPHATASE 80 U/L (40-150); ANION GAP 9 mmol/L (7-16); AST,SGOT 20 U/L (5-34); BILIRUBIN,TOTAL 0.5 mg/dL (0.2-1.2); BLOOD UREA NITROGEN 51 mg/dL (8-26); CALCIUM 8.7 mg/dL (8.4-10.2); CARBON DIOXIDE 23 mmol/L (23-31); CHLORIDE 107 mmol/L (98-107); GLUCOSE 140 mg/dL (70-99); POTASSIUM 5.3 mmol/L (3.5-4.5); SODIUM 139 mmol/L (136-145)
[2023-08-26 18:49] LABS: TROPONIN-I < 0.010 ng/mL (0.00-0.033)
[2023-08-26 19:06] LABS: BAND 1 % (0-10); LYMPHOCYTE 17 % (20.0-51.0); NEUTROPHILS 76 % (42.0-75.2); PLATELET ESTIMATE NORMAL (NORMAL)
[2023-08-26] MEDS ORDERED: DOXYCYCLINE 10100 MG PO (19:39)
[2023-08-26] MEDS ORDERED: LYRICA 150MG C150 MG PO (19:42)
[2023-08-26] MEDS ORDERED: ARTHROTEC 550 MG/TAB PO (19:42)
[2023-08-26] MEDS ORDERED: OXYCONTIN 10MG10 MG PO (19:42)
[2023-08-26 19:57] LABS: PHOSPHOROUS 4.5 mg/dL (2.3-4.7)
--- NOTE | 2023-08-26 21:50 | NUR ---
Recieved report from ELTON Stanley at this time.
--- NOTE | 2023-08-26 22:05 | NUR ---
Patient arrived to the unit at this time with and belongings. Denies any pain at this time. Provided patient with water and juice, denies any other needs. Assessment and med rec complete. IV in right AC infusing with no complications. Oriented patient and family to room, phone, and call light. Call light and personal items in reach. Bed in low position.
[2023-08-26 22:24] VITALS: BP 152/72; PULSE 73; TEMP 96.9
[2023-08-26 23:18] VITALS: BP 134/78; PULSE 83; TEMP 97.5
[2023-08-27] VITALS (11 sets, daily range): BP systolic 134–170; BP diastolic 72–78; PULSE 80–101; TEMP 97.7–98.8
--- NOTE | 2023-08-27 06:00 | NUR ---
Patietn resting in bed. Denies any pain or needs at this time. Patient changed and cleaned up. Call light and personal items in reach. Bed in low position.
[2023-08-27 07:34] LABS: HEMOGLOBIN 10.2 g/dl (13.5-18.0); MEAN CELL VOLUME 89 fl (80.0-100.0); MEAN CORPUSCULAR HEMOGLOBIN 28 pg (27-31); MEAN CORPUSCULAR HGB CONC 31 g/dl (33.0-37.0); MEAN PLATELET VOLUME 10.5 fl (7.4-10.4); PLATELET COUNT 254 K/mm3 (130-400); RED BLOOD COUNT 3.68 M/mm3 (4.20-5.60); REDCELL DISTRIBUTION WIDTH-CV 14.7 % (11.5-14.5)
[2023-08-27 07:38] LABS: HEMATOCRIT 32.9 % (42.0-52.0)
[2023-08-27 07:53] LABS: CALCIUM 8.7 mg/dL (8.4-10.2); CREATININE, serum 1.83 mg/dL (0.72-1.25); POTASSIUM 4.4 mmol/L (3.5-4.5)
--- NOTE | 2023-08-27 11:38 | NUR ---
SW met with patient to complete intake. Spouse Laury Davis [phone] and son Jose Enrique Davis present during intake. Patient provided he lives with spouse [place] Lockhart, patient provides that he is wheelchair bound, and previously utilized [facility] home [facility] and enjoyed their care from previous services, PCP is Dr. Hernandez, and pharmacy is [facility]. DPOA/HC is spouse. Patient states that he is unsure of way forwward as he has been unable to transfer up to most recently. SW will continue to follow. DC plan: LTC vs SNF
--- NOTE | 2023-08-27 18:45 | NUR ---
PATIENT RESTING IN BED WITH AT BEDSIDE. TV ON AT THIS TIME. NO ACUTE DISTRESS NOTED. PATIENT ON 4 LITERS VIA NC. BEDSIDE SHIFT REPORT COMPLETED. PATIENT DENIES ANY NEEDS AT THIS TIME. BED IN LOW POSITION WITH WHEELS LOCKED WITH RAILS UP X3 AND CALL LIGHT WTIHIN REACH. BED ALARM ON.
--- NOTE | 2023-08-27 19:45 | NUR ---
PATIENT RESTING IN BED WITH NO ACUTE DISTRESS NOTED. AT BEDSIDE. TV SOUND NOT WORKING. PATIENT AND VERBALIZED UNDERSTANDING THAT WORK ORDER WOULD BE PUT IN. ASSESSMENT COMPLETED AT THIS TIME. PATIENT TOLERATED WELL. PATIENT DENIES ANY OTHER NEEDS AT THIS TIME. PURWICK IN PLACE AND DRAINING CLEAR YELLOW URINE. BED IN LOW POSITION WITH WHEELS LOCKED WITH RAILS UP X3 AND CALL LIGHT WITHIN REACH.
--- NOTE | 2023-08-27 21:50 | NUR ---
PATIENT RESTING IN BED WITH AT BEDSIDE. RESPIRATIONS EVEN AND UNLABORED WITH NO ACUTE DISTRESS NOTED. PATIENT ON 4 LITERS OF OXYGEN VIA NC. INT TO RIGHT FOREARM REMOVED DUE TO LEAKING WITH CATHETER INTACT AND PRESSURE DRESSING APPLIED. MEDICATION ADMINISTRATION COMPLETED. PATIENT REQUESTE APPLE AND GRAPE JUICE. BOTH GIVEN. CANISTER FOR PURWICK CHANGED WITH 1100ML OF CLEAR YELLOW URINE NOTED. PATIENT DENIES ANY OTHER NEEDS AT THIS TIME. BED IN LOW POSITION WITH WHEELS LOCKED WITH RAILS UP X3 AND CALL LIGHT WITHIN REACH.
--- NOTE | 2023-08-27 22:20 | NUR ---
PATIENT REQUESTED TO BE PULLED UP IN BED. PRIMARY NURSE, PCT, AND KACIE HELPED PATIENT TO REPOSITION FOR COMFORT. NEW PURWICH PLACED. PATIENT TOLERATED WELL. PATIENT ASSISTED TO TURN ONTO RIGHT SIDE WITH PILLOW SUPPORT IN BACK. ALL NEEDS MET. BED IN LOW POSITION WITH WHEELS LOCKED WITH RAILS UP X3 AND CALL LIGHT WITHIN REACH.
[2023-08-28] VITALS (13 sets, daily range): BP systolic 138–167; BP diastolic 70–81; PULSE 79–89; TEMP 97.1–98.5
[2023-08-28 07:59] LABS: BASO # 0.1 K/mm3 (0.0-0.2); BASO % 0.6 % (0.0-2.0); EOS # 0.3 K/mm3 (0.0-0.7); EOS % 3.6 % (0.0-4.0); GRAN # 5.6 K/mm3 (1.4-6.5); GRAN % 59.8 % (42.2-75.2); HEMOGLOBIN 10.5 g/dl (13.5-18.0); LYMPH # 2.2 K/mm3 (1.2-3.4); LYMPH % 23.6 % (20.0-51.0); MEAN CELL VOLUME 89 fl (80.0-100.0); MEAN CORPUSCULAR HEMOGLOBIN 28 pg (27-31); MEAN CORPUSCULAR HGB CONC 31 g/dl (33.0-37.0); MONO # 1.1 K/mm3 (0.1-0.6); MONO % 12.1 % (1.7-9.3); PLATELET COUNT 301 K/mm3 (130-400); REDCELL DISTRIBUTION WIDTH-CV 14.4 % (11.5-14.5)
[2023-08-28 08:10] LABS: HEMATOCRIT 33.8 % (42.0-52.0)
[2023-08-28 08:13] LABS: ALBUMIN 2.4 gm/dL (3.4-4.8); BILIRUBIN,TOTAL 0.5 mg/dL (0.2-1.2); CALCIUM 9.2 mg/dL (8.4-10.2); CREATININE, serum 1.34 mg/dL (0.72-1.25); POTASSIUM 4.3 mmol/L (3.5-4.5)
--- NOTE | 2023-08-28 15:48 | NUR ---
PT HAS SAT UP ON SIDE OF BED A FEW DIFFERENT TIMES TODAY, REQUIRES 2-3 ASSIST TO GET INTO SEATED POSITION BUT CAN HOLD HIMSELF UP ONCE POSITIONED. HE CONTINUES ON 4L OF O2NC, TOOK IT OFF WHEN HE STARTED EATING CAUSING HIM TO DESAT TO 85% PER RESPIRATORY. PT AGREED TO PUT 02 BACK ON AFTER APPLYING SOME NASAL LUBRACANT. PT CONTINUES WITH INCONTINENCE, PUREWHICK IN PLACE TO COLLECT URINE AND PREVENT FURTHER SKIN BREAKDOWN. NEW SMALL OPEN AREA NOTED TO THE BACK OF PT'S SCROTUM, MEPILEX DRESSING APPLIED TO THE AREA.
--- NOTE | 2023-08-28 17:16 | NUR ---
THIS NURSE IN TO SEE PT, DARK RED CLEAR URINE NOTED IN THE SUCTION CANISTER. HOSPITAL NOTIFIED. LOVENOX DISCONTINUED, SCD'S ORDERED FOR VTE.
--- NOTE | 2023-08-28 19:47 | NUR ---
PATIENT RESTING IN BED WITH AT BEDSIDE WITH NO ACUTE DISTRESS NOTED. PATIENT ALERT AND ORIENTED ON 4LITERS OF OXYGEN VIA NC. ASSESSMENT COMPLETED. PATINET TOLERATED WELL. ALL NEEDS MET. BED IN LOW POSITION WITH WHEELS LOCKED WITH RAILS UP X3 AND CALL LIGHT WITHIN REACH. BED ALARM ON.
--- NOTE | 2023-08-28 21:05 | NUR ---
PATIENT RESTING IN BED WITH NO ACUTE DISTRESS NOTED WITH AT BEDSIDE. PATIENT ON 4 LITERS OF OXYGEN VIA NC. MEDICATION ADMINISTRATION COMPLETED AT THIS TIME. PATIENT REQUESTED ICE, WATER, AND GRAPE JUICE. ALL GIVEN. PATIENT TOLERATED WELL. ALL NEEDS MET. BED IN LOW POSITION WITH WHEELS LOCKED WITH RAILS UP X3 AND CALL LIGHT WITHIN REACH. BED ALARM ON.
[2023-08-29] VITALS (11 sets, daily range): BP systolic 118–173; BP diastolic 49–84; PULSE 83–94; TEMP 97.6–99.7
[2023-08-29 07:29] LABS: BASO # 0.1 K/mm3 (0.0-0.2); BASO % 0.5 % (0.0-2.0); EOS # 0.2 K/mm3 (0.0-0.7); EOS % 1.5 % (0.0-4.0); GRAN # 8.8 K/mm3 (1.4-6.5); GRAN % 71.3 % (42.2-75.2); HEMOGLOBIN 11.2 g/dl (13.5-18.0); LYMPH # 1.8 K/mm3 (1.2-3.4); LYMPH % 14.9 % (20.0-51.0); MEAN CELL VOLUME 88 fl (80.0-100.0); MEAN CORPUSCULAR HEMOGLOBIN 28 pg (27-31); MEAN CORPUSCULAR HGB CONC 32 g/dl (33.0-37.0); MEAN PLATELET VOLUME 9.7 fl (7.4-10.4); MONO # 1.4 K/mm3 (0.1-0.6); MONO % 11.1 % (1.7-9.3); PLATELET COUNT 335 K/mm3 (130-400); RED BLOOD COUNT 4.02 M/mm3 (4.20-5.60); REDCELL DISTRIBUTION WIDTH-CV 14.3 % (11.5-14.5)
[2023-08-29 07:31] LABS: HEMATOCRIT 35.3 % (42.0-52.0)
[2023-08-29 07:49] LABS: ALBUMIN 2.4 gm/dL (3.4-4.8); BILIRUBIN,TOTAL 0.5 mg/dL (0.2-1.2); CALCIUM 9.2 mg/dL (8.4-10.2); CREATININE, serum 1.46 mg/dL (0.72-1.25); POTASSIUM 4.2 mmol/L (3.5-4.5)
--- NOTE | 2023-08-29 08:00 | NUR ---
Patient alert and oriented x4, reported BM, hygiene provided, purewick in place, clots in the head of the penis, clenead. Unable to urinate. Spouse at the bedside. Assessment completed, continue monitoring.
--- NOTE | 2023-08-29 12:24 | NUR ---
Unable to scan bladder, pt assisted by ELTON Molina, and was able to get several clots out, after this patatient was able to urinate aproximately 600 ml out. Catheter arguello was tried to be inserted but unsuccessful. Reported to Dr. Quick and Dr. Soto.
--- NOTE | 2023-08-29 21:00 | NUR ---
Patient resting in bed with at bedside. States he has pain but nothing out of the oridanary. Juice given with meds. Assessment complete. IV in left hand flushes easily with no complicaitons. Call light and personal items in reach. Bed in low position and bed alarm on.
[2023-08-30] VITALS (12 sets, daily range): BP systolic 118–181; BP diastolic 70–88; PULSE 77–92; TEMP 97.7–98.5
--- NOTE | 2023-08-30 06:20 | NUR ---
Patient resting in bed. Denies any pain or needs at this time. Paitent had an uneventful evening. Call light and personal items in reach. Bed in low position and bed alarm on.
--- NOTE | 2023-08-30 08:25 | NUR ---
PT RESTING IN BED UPON ENTERING, AT BEDSIDE. ASSESSMENT DONE, MEDS GIVEN PER ORDER. PT REPORTS LEFT FOOT PAIN AND REQUESTING PRN OXYCODONE SCHEDULED SINCE HE TAKES IT AT HOME REGULARLY. THIS NURSE EDUCATED PT THAT ITS PRN AND IS PRESCRIBED THAT WAY AT HOME AND THAT HE CAN REQUEST IT EVERY 4 HOURS. IV TO LEFT HAND FLUSHES WELL WITH NO INFILTRATION NOTED. PT ON 4L NASAL CANNULA AND DENIES BEING SHORT OF BREATH AT THIS TIME, LUNGS DIMINISHED IN ALL MEJIA. PTS HAS A LARGE ABDOMINAL HERENIA. SCROTUM IS SWOLLEN WITH SCATTERED REDNESS NOTED. PT HAS A PUREWICK IN PLACE THAT IS DRAINING WELL INTO CANISTER. COCCYX RED BUT SKIN INTACT, MEPILEX IN PLACE. SKIN ON BILATERAL FEET CRACKED. PT DENIES NEEDS AT THIS TIME AND MEDS GIVEN WITH JUICE. BED IN LOWES POSITION, CALL LIGHT IN REACH, BED ALARM ON
[2023-08-30] MEDS ORDERED: THERATEARS 15 M15 ML OP (11:28)
--- NOTE | 2023-08-30 12:11 | NUR ---
PT COMPLAINING OF DRY EYES AND STATES THAT HE USES THER[facility] AT HOME. MED LIST UPDATED AND DR BEVERLY NOTIFIED. HOSPITALIST GAVE THIS NURSE A VERBAL ORDER TO PLACE ORDER FOR THERATE[facility]
--- NOTE | 2023-08-30 16:19 | NUR ---
Press Tender met with patient and his , Laury to discuss SNF. Initially patient was open to discussion for SNF, but at one point during conversation, patient stated SW should just leave because he didn't know what the plan would be. Then, patient stated he was done with the conversation and that SW could just talk with Laury. SW provided Medicare.gov list of SNF options and Laury stated [facility] would be the first preference but that she was open to having referrals sent to the surrounding area. SW faxed referrals to [facility], [facility], [facility], [facility], [facility], [facility], and [facility]. [facility] declined as they cannot manage patient's needs based on his weight. discharge plan: SNF, pending referrals
--- NOTE | 2023-08-30 19:28 | NUR ---
REPORT GIVEN TO ELTON ROSE
--- NOTE | 2023-08-30 20:30 | NUR ---
Patient resting in bed with family at bedside. States he has some pain, PRN meds given. Denies any needs at this time. Assessment complete. IV in left hand flushes with no complications. Call light and personal items in reach. Bed in low position and bed alarm on.
[2023-08-31] VITALS (13 sets, daily range): BP systolic 127–154; BP diastolic 67–78; PULSE 71–93; TEMP 97.7–98.6
--- NOTE | 2023-08-31 08:00 | NUR ---
PT SITTING IN BED UPON ENTERING, AT BEDSIDE. ASSESSMENT DONE, MEDS GIVEN PER ORDER. PT AND EDUCATED ON LEVEMIR COMPARED TO NOVOLOG DUE TO PT NOT REGULARLY NEEDING NOVOLOG. PT REPORTS HIP PAIN AND GIVEN PRN PER ORDER. PT ON 4L NASAL CANNULA AND DENIES SHORTNESS OF BREATH AT THIS TIME. INT IN LEFT HAND FLUSHES WELL [place] COMPLICATIONS, LUNG SOUNDS DIMINISHED, SKIN ON FEET CRACKED, LARGE ABDOMINAL HERNIA. PT HAS A PUREWICK IN PLACE THAT IS DRAINING CLEAR YELLOW URINE, NO BLOOD NOTED. PT REPOSITIONED AND PULLED IN BED. PT HAS REDNESS TO COCCYX, BOTTOM CLEANED AND MEPILEX CHANGED. PT SAT UP FOR BREAKFAST. PT COMPLAINING ABOUT WAITING AROUND TO BE REPOSITIONED AND SAT UP FOR BREAKFAST AND THAT BREAKFAST HAS BEEN THERE SINCE 0700. THIS NURSE NOTIFIED PT THAT WE NORMALLY DO SHIFT CHANGED AROUND THAT TIME AND THAT THIS NURSE WAS NOT AWARE HE WAS WAITING SINCE THEN TO BE SAT UP. PT DENIES NEEDS ATT THIS TIME. BED IN LOWEST POSITION, CALL LIGHT IN REACH, BED ALARM ON
[2023-08-31] MEDS ORDERED: NUVIGIL150 MG PO (10:21)
--- NOTE | 2023-08-31 16:37 | NUR ---
Thermoforming Machine Operator was approached by patient's son Jose Enrique Escalante" (ph#[phone]) to discuss discharge planning. Enrique advised they have bariatric equipment at home for patient including a lift, but that patient has become more care currently than what his , Laury can manage. Enrique advised patient may need LTC but that patient is resistant to this. Enrique would like to give patient an opportunity to work with rehab to possibly get back home with supports and equipment. JACQUELYN advised there are not any accepting facilities at this time but that additional referrals will be sent. JACQUELYN advised that level of assistance patient needs plus need for bariatric equipment can be a barrier to placement. Enrique verbalized that last time patient was hospitalized, they talked about placement in or [place] so he understands placement may be out of town. [facility] and [facility] denied based on weight. JACQUELYN contacted Sheridan at [facility] who did not get referral yesterday but will send it to her team for review. JACQUELYN sent referral to Brionna Gautam, Marketing contact at [facility], which has facilities all over [place]. JACQUELYN also faxed referral to [facility], [facility], [facility], [facility], [facility], and [facility].
--- NOTE | 2023-08-31 18:49 | NUR ---
REPORT GIVEN TO ELTON JACOB
--- NOTE | 2023-08-31 21:20 | NUR ---
Patient given scheduled HS medications per orders around 2104. Requested pain medication for level 7 pain, and given PRN Acetaminophen per orders. Requested fan in room. This nurse called powerhouse mechanic helper and requested fan. Patient voiced no further questions, needs, or concerns at that time. at bedside. Report given to ELTON Puga at this time.
--- NOTE | 2023-08-31 22:30 | NUR ---
Pt doing okay this evening. Pt was sleeping when I made my round and did my assessment. Pt reported that he always has pain, but that he only takes the narcotic during the day. Pts at bedside and reports that she plans to stay the night. Pt denies any other needs at this time, SCDs on bilaterally
[2023-09-01 00:10] VITALS: BP_SYST 132
--- NOTE | 2023-09-01 00:30 | NUR ---
Pt repositioned and changed at this time. Pt denies any needs, call light within reach
--- NOTE | 2023-09-01 03:09 | NUR ---
Pt rang call light asking for some tylenol which was given at this time. Pt denies any other needs, refusing to be moved at this time
[2023-09-01 03:49] VITALS: BP 154/76; PULSE 82; TEMP 97.5
[2023-09-01 03:55] VITALS: BP_SYST 154
[2023-09-01 07:39] VITALS: BP 143/77; PULSE 81; TEMP 97.6
--- NOTE | 2023-09-01 08:00 | NUR ---
PT SITTING IN BED UPON ENTERING, AT BEDSIDE. ASSESSMENT DONE, MEDS GIVEN PER ORDER. PT ON 4L NASAL CANNULA, LUNGS DIMINISHED IN ALL BASES. PT REPORTS HIP PAIN AND GIVEN PRN PAIN MED PER ORDER. LARGE ABDOMINAL HERNIA AND PUREWICK IN PLACE TO SUCTION AND DRAINING WELL. COCCYX REDDENED, PT CLEANED UP AND MEPILX IN PLACE. THIS NURSE AND PILAR RN CHANGED PT SHEET AND REPOSITIONED AND SAT UP. PT DENIES NEEDS AT THIS TIME. PHYSICAL THERAPY AT BEDSIDE TO ASSIST PT TO CHAIR UPON THIS NURESE LEAVING
[2023-09-01] MEDS ORDERED: NOVLOG SQ (10:00)
[2023-09-01] MEDS ORDERED: DULCOLAX TAB5 MG PO (10:00)
[2023-09-01] MEDS ORDERED: SYSTANE 0.3-0.1 EACH OP (10:00)
[2023-09-01] MEDS ORDERED: MIRALAX PA17 GM/Dose PO (10:00)
[2023-09-01] MEDS ORDERED: LEVEMIR100 U/ML SQ (10:00)
[2023-09-01] MEDS ORDERED: COLACE 100100 MG/CAP PO (10:00)
[2023-09-01] MEDS ORDERED: DEXTROSE 50% IV (10:01)
[2023-09-01] MEDS ORDERED: RITE AID GLUCOSE4 G1 PO (10:01)
[2023-09-01] MEDS ORDERED: [UNRECOGNIZED DRUG - OTHER] IV (10:01)
[2023-09-01 11:36] VITALS: BP 122/69; PULSE 81; TEMP 97.5
--- NOTE | 2023-09-01 13:45 | NUR ---
EMS HERE TO TRANSPORT PT TO [place]. PT TRANSFERRED TO THE STRETCHER WITH [facility] AND [facility]. PT BELONGINGS TAKEN BY .
--- NOTE | 2023-09-01 14:25 | NUR ---
REPORT GIVEN TO AMBROSE AT [facility]
--- NOTE | 2023-09-01 16:20 | NUR ---
Rounding Machine Operator spoke with Sheridan at [facility] who advised they can accept patient today. SW attended clinical rounds with the team. Patient and his , Laury are in agreement with [facility]. SW provided contact numbers for report to Hospitalist and to RN. JACQUELYN contacted [facility] to set up transport as patient is not safe for private vehicle. Discharge Plan: [facility]
== END 2023-09-01 14:37 | disposition swing bed (61) | DRG 683 ==
LOC: COL.ER 16:53 → MEDICAL 19:30
PROVIDERS: Nurse Practitioner Primary Care; Physician Assistant; ADMIT Internal Medicine
DX: N17.9 Acute kidney failure, unspecified (principal); G93.40 Encephalopathy, unspecified; N39.0 Urinary tract infection, site not specified; Z68.43 Body mass index [BMI] 50.0-59.9, adult; J96.11 Chronic respiratory failure with hypoxia; R65.10 Systemic inflammatory response syndrome (SIRS) of non-infectious origin without acute organ dysfunction; R31.9 Hematuria, unspecified; N18.30 Chronic kidney disease, stage 3 unspecified; E66.01 Morbid (severe) obesity due to excess calories; N40.0 Benign prostatic hyperplasia without lower urinary tract symptoms; I12.9 Hypertensive chronic kidney disease with stage 1 through stage 4 chronic kidney disease, or unspecified chronic kidney disease; E11.22 Type 2 diabetes mellitus with diabetic chronic kidney disease; Z79.84 Long term (current) use of oral hypoglycemic drugs; E78.5 Hyperlipidemia, unspecified; F41.9 Anxiety disorder, unspecified; F32.A Depression, unspecified; M10.9 Gout, unspecified; E11.40 Type 2 diabetes mellitus with diabetic neuropathy, unspecified; G89.29 Other chronic pain
CPT/HCPCS: A9284; J0360; J0696; J1650; J1815; J7030; J7120